=== PATIENT | female | born 1980 | race Caucasian/White ===

== ENCOUNTER → 2018-08-04 07:06 | Outpatient (CLI) | payer OTHER, MEDICAID, SELFPAY ==
[2018-08-04 07:59] LABS: Add Manual Diff / Slide Review NO; Basophils Percent Auto 0.3 % (0-2); Hematocrit 39.4 % (36-46); Hemoglobin 13.2 g/dL (12.0-16.0); Lymphocytes Percent Auto 23.3 % (25-40); Mean Corpuscular HGB Conc 33.5 % (30-36); Mean Corpuscular Hemoglobin 33.2 PG (26-34); Monocytes Percent Auto 8.8 % (3-14); Neutrophils Absolute Auto 4500 /uL (3000-5900); Neutrophils Percent Auto 64.6 % (50-75); Platelet Count 291 X10^3/uL (150-400); Red Blood Cell Count 3.98 X10^6/uL (4.0-5.2); Red Cell Distribution Width 12.8 % (11.6-14.8); White Blood Cell Count 6.9 X10^3/uL (4.5-11.0)
[2018-08-04 08:10] LABS: Alanine Aminotransferase 22 IU/L (9-52); Albumin 4.2 g/dL (3.5-5.0); Albumin Globulin Ratio 1.5 (1.0-2.8); Alkaline Phosphatase 27 U/L (38-126); Aspartate Aminotransferase 18 IU/L (14-36); Bilirubin Total 0.7 mg/dL (0.2-1.3); Blood Urea Nitrogen 12 mg/dL (7-17); Calcium 8.9 mg/dL (8.4-10.2); Carbon Dioxide 27 mmol/L (22-32); Chloride 106 mmol/L (98-107); Cholesterol 213 mg/dL (140-199); Estimated Glomerular Filt Rate > 60.0 mL/min (>60); Globulin 2.8 g/dL (1.7-4.1); Glucose 87 mg/dL (70-100); HDL Cholesterol 42 mg/dL (40-60); HEMOLYSIS < 15 (0-50); LDL Cholesterol Calculated 154 mg/dL (<100); Potassium 4.6 mmol/L (3.4-5.1); Sodium 143 mmol/L (137-145); Triglycerides 87 mg/dL (35-150)
[2018-08-04 09:58] LABS: Thyroid Stimulating Hormone 1.65 uIU/mL (0.47-4.68)
[2018-08-04 13:06] LABS: Appearance Urine UA SL CLOUDY; Bilirubin Urine UA NEGATIVE (NEGATIVE); Color Urine UA YELLOW; Glucose Urine UA NEGATIVE (Normal); Ketones Urine UA 1+ (NEGATIVE); Leukocyte Esterase Urine UA 1+ (NEGATIVE); Nitrite Urine UA NEGATIVE (Negative); Occult Blood Urine UA NEGATIVE (Negative); Protein Urine UA TRACE (Negative); Specific Gravity Urine UA 1.025 (1.000-1.035); Urobilinogen Urine UA 0.2 E.U./dL (0.2); pH Urine UA 5.5 (4.5-8.0)
[2018-08-04 13:24] LABS: Bacteria Urine Moderate (10-30); RBC Urine 0-1/HPF (0-5/HPF); Squamous Epithelial Cell Urine 1-5 /HPF; WBC Urine 5-10/HPF (0-5/HPF)
[2018-08-04 13:25] LABS: Culture Indicated Urine Specimen Cultured
== END ==
PROVIDERS: PCP Family Medicine; Visit Provider Family Medicine
DX: F98.8 Other specified behavioral and emotional disorders with onset usually occurring in childhood and adolescence (principal); Z51.81 Encounter for therapeutic drug level monitoring
CPT/HCPCS: 36415; 80053; 80061; 81003; 81015; 84443; 85025; 87086

== ENCOUNTER → 2019-03-18 08:12 | Outpatient (CLI) | payer OTHER, MEDICAID, SELFPAY ==
[2019-03-18 09:48] LABS: Alanine Aminotransferase 14 IU/L (9-52); Albumin 4.3 g/dL (3.5-5.0); Albumin Globulin Ratio 1.4 (1.0-2.8); Alkaline Phosphatase 32 U/L (38-126); Aspartate Aminotransferase 22 IU/L (14-36); BUN Creatinine Ratio 17.1 (6-22); Blood Urea Nitrogen 12 mg/dL (7-17); Calcium 9.5 mg/dL (8.4-10.2); Carbon Dioxide 30 mmol/L (22-32); Chloride 103 mmol/L (98-107); Cholesterol 192 mg/dL (140-199); Estimated Glomerular Filt Rate > 60.0 mL/min (>60); Globulin 3.1 g/dL (1.7-4.1); Glucose 90 mg/dL (70-100); HDL Cholesterol 61 mg/dL (40-60); HEMOLYSIS < 15 (0-50); LDL Cholesterol Calculated 98 mg/dL (<100); Potassium 4.1 mmol/L (3.4-5.1); Sodium 141 mmol/L (137-145); Total Protein 7.4 g/dL (6.3-8.2); Triglycerides 163 mg/dL (35-150)
[2019-03-18 10:43] LABS: Thyroid Stimulating Hormone 2.87 uIU/mL (0.47-4.68)
== END ==
PROVIDERS: PCP Family Medicine; Visit Provider Family Medicine
DX: E78.5 Hyperlipidemia, unspecified (principal); F98.8 Other specified behavioral and emotional disorders with onset usually occurring in childhood and adolescence; Z51.81 Encounter for therapeutic drug level monitoring
CPT/HCPCS: 36415; 80053; 80061; 84443

== ENCOUNTER → 2021-01-18 16:04 | Outpatient (CLI) | payer OTHER, MEDICAID, SELFPAY ==
[2021-01-18] MEDS: COVID-19 VACC #1, MRNA(MOD) 100 MCG/0.5 ML VIAL IM (16:14)
== END ==
PROVIDERS: PCP Family Medicine; Visit Provider Internal Medicine
DX: Z23 Encounter for immunization (principal)
CPT/HCPCS: 0011A; 91301

== ENCOUNTER → 2021-02-15 08:47 | Outpatient (CLI) | payer OTHER, MEDICAID, SELFPAY ==
[2021-02-15] MEDS: COVID-19 VACC #2, MRNA(MOD) 100 MCG/0.5 ML VIAL IM (09:00)
== END ==
PROVIDERS: PCP Family Medicine; Visit Provider Internal Medicine
DX: Z23 Encounter for immunization (principal)
CPT/HCPCS: 0012A; 91301

== ENCOUNTER → 2021-03-28 09:25 | Outpatient (CLI) | payer OTHER, MEDICAID, SELFPAY ==
--- NOTE | 2021-03-28 09:27 | DI.MG.S_ITS ---
BILATERAL DIGITAL DIAGNOSTIC MAMMOGRAM 3D/2D: 03/28/2021 CLINICAL: Right breast lump. Baseline. No prior exams were available for comparison. The tissue of both breasts is heterogeneously dense. This may lower the sensitivity of mammography. No significant masses, calcifications, or other findings are seen in either breast. IMPRESSION: INCOMPLETE: NEEDS ADDITIONAL IMAGING EVALUATION There are no abnormalities seen in the right breast to correspond with the palpable abnormalities at 3, 6, 9, and 10 o'clock, however, ultrasound is recommended. There is no abnormality seen in the right breast to correspond with the discharge from the nipple in the sub-areolar depth, however, ultrasound is recommended. Ultrasound will be performed immediately following the current exam. This exam was interpreted at Station ID: [id number]. NOTE: For mammograms, a report in lay terms will be sent to the patient. Approximately 15% of breast malignancies will not be visualized mammographically. In the management of a palpable breast mass, a negative mammogram must not discourage biopsy of a clinically suspicious lesion. Electronically Signed By: Jimmy Lawler M.D. [email or web address]/:03/28/2021 10:41:08 ACR BI-RADS Category 0: Incomplete [id number]
--- NOTE | 2021-03-28 09:27 | DI.US.S_ITS ---
LIMITED ULTRASOUND OF RIGHT BREAST: 03/28/2021 CLINICAL: Previous palpable/painful right breast lumps with drainage. Comparison is made to exam dated: 03/28/2021 mammogram - [facility]. Real-time ultrasound of the right breast 1 o'clock, 3 o'clock, 6 o'clock, 9-10 o'clock, and retroareolar regions was performed on the area of interest. No discrete cystic or solid mass lesion identified in the areas of palpable abnormality. No discrete cystic or solid mass lesion identified in the retroareolar region to correlate with history of discharge. IMPRESSION: NEGATIVE There is no sonographic evidence of malignancy. There are no abnormalities seen in the right breast to correspond with the palpable abnormalities and history of non-bloody discharge from the nipple at 3, 6, 9, 10 o'clock and in the sub-areolar region, however, clinical followup is recommended. A 1 year screening mammogram is recommended. This exam was interpreted at Station ID: [id number]. Electronically Signed By: Jimmy bateman/:03/28/2021 10:40:20 letter sent: Clinical Evaluation Ultrasound BI-RADS: 1 Negative
== END ==
PROVIDERS: PCP Family Medicine; Referring Provider Nurse Practitioner Family; Visit Provider Nurse Practitioner Family
DX: N63.12 Unspecified lump in the right breast, upper inner quadrant (principal); R92.2 Inconclusive mammogram
CPT/HCPCS: 76642; 77066; G0279

== ENCOUNTER 2021-04-27 21:17 | Emergency (ER) | payer OTHER, MEDICAID, SELFPAY ==
[2021-04-27 21:25] VITALS: BP 122/80; PULSE 81; RESP 14; TEMP 36.8; O2SAT 98; BMI 27.4
--- NOTE | 2021-04-27 21:28 | DI.RAD.S_ITS ---
PROCEDURE: XR FINGER LT MIN 2V INDICATIONS: slammed finger in window TECHNIQUE: PA view of the hand and two views of the index finger. COMPARISON: None. FINDINGS: Bones: No acute fractures or dislocations. No suspicious bony lesions. Soft tissues: No suspicious soft tissue calcifications. Soft tissue irregularity of the distal aspect of the index finger most likely represents a laceration. IMPRESSION: No acute osseous abnormality. If clinical suspicion and/or symptoms persist, additional imaging with repeat plain films, or advanced imaging (e.g. CT, MRI) may be helpful for further assessment. Dictated by: Homero Martinez M.D. on 04/27/2021 at 22:32 Approved by: Homero Martinez M.D. on 04/27/2021 at 22:32
[2021-04-28] MEDS: TET,DIPH,PERTUSS(ACELL),VAC/PF 0.5 ML SYRINGE IM (00:38)
--- NOTE | 2021-04-28 04:12 | ED.WOUNDLAC ---
HPI - Wound/Laceration General Chief Complaint: Wound/Laceration Stated Complaint: LEFT FINGER INDEX FINGER TIP LACERATION Time Seen by Provider: 04/28/21 04:09 Source: patient Mode of arrival: Ambulatory Limitations: no limitations History of Present Illness HPI narrative: 40-year-old woman with history of ADD and some anxiety presents after smashing the tip of her left index finger in a window. She complains of severe some throbbing pain and due to the pain I am unable to completely remove the dressing to view the wound. Related Data Previous Rx's Medication Instructions Recorded cephalexin 500 mg tablet 500 mg PO BID #20 tab 03/13/21 dextroamphetamine-amphetamine 20 20 mg PO BID #60 tab 03/29/21 mg tablet (Adderall) Allergies Allergy/AdvReac Type Severity Reaction Status Date / Time tramadol [TRAMADOL] Allergy Mild Verified 04/27/21 21:25 codeine [CODEINE] Allergy Unknown Verified 04/27/21 21:25 Review of Systems Review of Systems Narrative: Pertinent positive and negative findings as per HPI Remainder of review of systems is otherwise unremarkable for Constitutional: Fevers, chills, weakness ENT: No sore throat, neck pain, ear pain CV: Chest pain, palpitations, Respiratory: Cough, wheeze, dyspnea Patient History Medical History ADHD (attention deficit hyperactivity disorder) (1983) Attention deficit disorder (~1983) Breast lump on right side at 1 o'clock position Chickenpox (1985) Family history of breast cancer in first degree relative Galactorrhea Hyperlipidemia Left knee pain PTSD (post-traumatic stress disorder) (~2019) Surgical History Status post tubal ligation Family History Mother Ovarian cancer Father No problems noted. Brother No problems noted. Social History Smoking Status: Never smoker alcohol intake: never Smoking Status: Never smoker alcohol intake frequency: holidays/special occasions only Substance Use Type: does not use Exam Narrative Exam Narrative: General: Alert appropriate in no acute distress Respiratory: Able to speak in full sentences, no obvious respiratory distress Skin: No obvious rashes, warm and dry Neurologic: Grossly intact no obvious asymmetries or abnormalities Psych: appropriate insight and affect, cooperative Extremity: Left index finger with a crush injury to the tip that has cut through the distal portion of the nail(not involving the nail bed) and peeled off the epidermis from the very tip of finger. Initial Vital Signs Initial Vital Signs: Vital Signs Temperature 98.2 F 04/27/21 21:25 Pulse Rate 81 04/27/21 21:25 Respiratory Rate 14 04/27/21 21:25 Blood Pressure 122/80 04/27/21 21:25 Pulse Oximetry 98 04/27/21 21:25 Procedures Nerve Block Nerve Block 1: Local Anesthetic: lidocaine 1% and with bicarb Amount of anesthesia used (mL): 10 Side: left Nerve Blocks: digital Procedure Successful: Yes (Partially, still significant sensation with rapid resolution of nerve block) [facility] [place] Procedure Name of Procedure: Distal finger nail removal Location: Left index finger, Technique/Description of procedure performed: fingernail is cut [facility] through the nail and the distal and is lifted off the nailbed and removed. There is a small distal flap of skin over the tip of the finger that is minimally attached but left in place to act as a biologic bandage. Additional Comments: We had significant difficulty in getting Yohana anesthetized. 10 cc of lidocaine 1% was used for a digital nerve block. An additional 2 cc is used directly into the pad of the finger. Still in adequate anesthesia was noted. She also notes that she has always had difficulty at the dentist and rarely gets completely numb. Switch to 2% lidocaine an additional 8 cc is injected in and around the distal tip of the left index finger with finally adequate anesthesia to remove the distal portion of the nail and apply dressing. There is no tuft fracture. Bleeding is controlled and no laceration significant enough to require suturing Course Orders Ordered: Discontinued Medications Bacitracin (Bacitracin Oint 0.9 Gm Pckt) 1 applic TOP NOW ONE Stop: 04/28/21 05:19 Diphtheria/Tetanus/Acell Pertussis (Tet,Diph,Pertuss(Acell),Vac/Pf 0.5 Ml Syringe) 0.5 ml IM .ONCE ONE Stop: 04/28/21 00:32 Last Admin: 04/28/21 00:38 Dose: 0.5 ml Documented by: LANEY Lidocaine HCl (Lidocaine 1% 20 Ml) 10 ml INJ NOW ONE Stop: 04/28/21 04:14 Last Admin: 04/28/21 04:45 Dose: Not Given Documented by: LANEY Vital Signs Vital signs: Vital Signs - 8 hr 04/28/21 05:45 Pulse Rate 70 Blood Pressure 104/67 Pulse Oximetry 98 MDM - Wound/Laceration Imaging Data XR finger : Radiologist's Impression: FINDINGS: Bones: No acute fractures or dislocations. No suspicious bony lesions. Soft tissues: No suspicious soft tissue calcifications. Soft tissue irregularity of the distal aspect of the index finger most likely represents a laceration. IMPRESSION: No acute osseous abnormality. If clinical suspicion and/or symptoms persist, additional imaging with repeat plain films, or advanced imaging (e.g. CT, MRI) may be helpful for further assessment. Dictated by: Homero Martinez M.D. on 04/27/2021 at 22:32 MDM Narrative Medical decision making narrative: 40-year-old woman with minor crush injury to the tip of her index finger with the distal half of her fingernail being removed. Significant pain control issues and recurrent need for additional anesthetic for this minor procedure. Anxiety was clearly exacerbating her pain. Once the dressing was in place she was much less anxious and pain was much better controlled. No evidence of infection, fracture or neurovascular compromise. Discharge Plan Departure Patient Disposition: Home Clinical Impression: Nail avulsion, finger Qualifiers: Encounter type: initial encounter Qualified Code(s): S61.309A - Unspecified open wound of unspecified finger with damage to nail, initial encounter Crushing injury of distal finger Qualifiers: Encounter type: initial encounter Qualified Code(s): S67.10XA - Crushing injury of unspecified finger(s), initial encounter Instructions: DI for Nail Avulsion Injury Activity Restrictions/Additional Instructions: I am sorry that you cot your finger in the window sill Fortunately, you did not break the bone. You only cut off half of the nail and the living part of the nail is still nice and healthy. The skin at the very tip of your finger is going to come off however I left in place to act as a ?biologic bandage? Use triple antibiotic ointment and gauze or Band-Aid to keep the wound covered until it is no longer tender Use the aluminum splint to prevent hitting the tip of your finger and causing pain Using 400 mg of ibuprofen (2 [id number] pills) and 1 Tylenol every 6 hours can be very helpful in controlling pain. This is going to hurt more the 1st 24 hours. Keeping it above the level of your heart will help avoid the throbbing. I hope you heal quickly Prescriptions: No Action dextroamphetamine-amphetamine [Adderall] 20 mg tablet 20 mg PO BID Qty: 60 RF: 0 cephalexin 500 mg tablet 500 mg PO BID Qty: 20 RF: 0 Referrals: Luke Guzman, [Primary Care Provider] -
[2021-04-28 05:45] VITALS: BP 104/67; PULSE 70; O2SAT 98
== END 2021-04-28 05:47 | disposition home or self-care (01) ==
PROVIDERS: Emergency Provider Emergency Medicine; PCP Family Medicine
DX: S61.309A Unspecified open wound of unspecified finger with damage to nail, initial encounter (principal); S67.10XA Crushing injury of unspecified finger(s), initial encounter; Z23 Encounter for immunization
CPT/HCPCS: 11730; 73140; 90471; 99283; 90715

== ENCOUNTER → 2021-04-30 15:10 | Outpatient (CLI) | payer OTHER, MEDICAID, SELFPAY ==
--- NOTE | 2021-04-30 15:12 | DI.RAD.S_ITS ---
PROCEDURE: XR KNEE LT 3V INDICATIONS: Left knee pain TECHNIQUE: 3 views of the knee were acquired. COMPARISON: None. FINDINGS: Bones: No fractures or dislocations. No suspicious bony lesions. Incidental bone island projecting in the medial tibial plateau. The joint spaces appear grossly preserved. Soft tissues: No joint effusion. No suspicious soft tissue calcifications. IMPRESSION: Overall, unremarkable examination. If the patient's pain or other symptoms persist, consider further evaluation with MRI Dictated by: Harley Conley M.D. on 04/30/2021 at 16:23 Approved by: Harley Conley M.D. on 04/30/2021 at 16:23
== END ==
PROVIDERS: PCP Family Medicine; Referring Provider Family Medicine; Visit Provider Family Medicine
DX: M25.562 Pain in left knee (principal); G89.29 Other chronic pain
CPT/HCPCS: 73562